=== PATIENT | male | born 1990 | race Caucasian/White ===

== ENCOUNTER → 2018-02-18 11:34 | Outpatient (CLI) | payer OTHER, MEDICAID, SELFPAY ==
--- NOTE | 2018-02-18 11:37 | DI.RAD.S_ITS ---
PROCEDURE: XR THORACIC SPINE 3V INDICATIONS: lower thoracic spinous process tenderness TECHNIQUE: 3 views of the thoracic spine were acquired. COMPARISON: [facility], , THORACIC SPINE 3 VIEWS, 03/17/2011, 11:03. FINDINGS: Bones: No fractures or dislocations. No suspicious bony lesions. There is minimal levocurvature Soft tissues: No paravertebral stripe thickening. IMPRESSION: Minimal levocurvature Dictated by: Bladimir Chavez M.D. on 02/18/2018 at 12:42 Approved by: Bladimir Chavez M.D. on 02/18/2018 at 12:47
== END ==
PROVIDERS: Family Provider Family Medicine; PCP Family Medicine; Visit Provider Family Medicine
DX: M54.6 Pain in thoracic spine (principal)
CPT/HCPCS: 72072

== ENCOUNTER → 2018-03-10 06:13 | Outpatient (CLI) | payer OTHER, MEDICAID, SELFPAY ==
--- NOTE | 2018-03-10 06:15 | DI.MRI.S_ITS ---
PROCEDURE: MR STROKE Pre- and post-contrast brain MRI, non-contrast brain MR angiogram, pre- and postcontrast neck MR angiogram INDICATIONS: eval for orgasmic headache TECHNIQUE: Brain: Noncontrast axial T1 spin echo, axial T2 fast spin echo, sagittal and axial FLAIR, coronal T2 fast spin echo, axial gradient echo, axial diffusion and ADC through the brain. After the administration of contrast, axial 3D VIBE of the cranial vasculature and brain. Brain MRA: Non-contrast 3-D time of flight MR angiogram, with multiple vnexlom-aegndjrdn-bhabkisjum (MIP) reformats performed. Neck MRA: Axial and sagittal TruFISP through the neck. Coronal dynamic MR angiogram during administration of contrast in the arterial and venous phases, with 3-dimenstional qldjcjf-ciwomnsyf-rdzkczxpih (MIP) reformats constructed from subtraction images. COMPARISON: None. FINDINGS: Image quality: Excellent. BRAIN: CSF spaces: Ventricles are normal in size and shape. Basal cisterns are patent. No extra-axial fluid collections. Brain: No intracranial bleeds or mass effects. Sierra-white matter interface is normal. Diffusion weighted images show no acute ischemic insults. There are low-lying cerebellar tonsils. Normal intravascular flow voids are present. No abnormal intracranial enhancement. Skull and face: Calvarial marrow signal is normal. Orbits appear normal. Sinuses: Small mucous retention cyst in the left maxillary sinus BRAIN MR ANGIOGRAM: Anterior circulation: Intracranial internal carotid arteries are normal in size and enhancement. The flow within the paired anterior cerebral arteries is normal and symmetric. The flow within the middle cerebral arteries is normal and symmetric. The anterior communicating artery is seen. No stenoses, occlusions, or aneurysms. Posterior circulation: The visualized portions of the vertebral arteries demonstrate normal caliber, and join to form a normal appearing basilar artery. The flow within the posterior cerebral arteries is normal and symmetric. No stenoses, occlusions, or aneurysms. NECK MR ANGIOGRAM: Carotids: Great vessels demonstrate a conventional anatomy as they arise from the aortic arch. The origins of the common carotid arteries appear patent. The calibers and courses of both common carotid arteries are normal. The bifurcation regions appear normal bilaterally. The internal carotid arteries demonstrate normal course and caliber. Posterior circulation: The origins of the vertebral arteries appear patent. More superior portions of both vertebral arteries demonstrate normal course and caliber, and join to form a normal appearing basilar artery. Miscellaneous: Subclavian arteries appear patent. Pre-contrast images through the neck show no soft tissue abnormalities. IMPRESSION: BRAIN MRI: Low-lying cerebellar tonsils. Please correlate clinically Subcentimeter left maxillary sinus mucous retention cyst or polyp. Otherwise, negative examination. No abnormal enhancement. BRAIN MR ANGIOGRAM: Negative examination. No evidence of aneurysm. NECK MR ANGIOGRAM: Normal exam. No focal stenosis or occlusion. Dictated by: Bladimri Chavez M.D. on 03/10/2018 at 8:47 Approved by: Bladimir Chavez M.D. on 03/10/2018 at 8:55
== END ==
PROVIDERS: Family Provider Family Medicine; PCP Family Medicine; Visit Provider Family Medicine
DX: G44.82 Headache associated with sexual activity (principal)
CPT/HCPCS: 70553; A9579

== ENCOUNTER 2018-04-03 18:57 | Emergency (ER) | payer OTHER, MEDICAID, SELFPAY ==
[2018-04-03 19:03] VITALS: BP 107/67; PULSE 90; RESP 14; TEMP 36.4; O2SAT 98
--- NOTE | 2018-04-03 19:03 | ED_ITS ---
HPI - Ear Problem <SHY Lomax - Last Filed: 04/03/18 22:25> General Chief complaint: Skin/Abscess/Foreign Body Stated complaint: PUPPY GOT RIGHT EAR Time Seen by Provider: 04/03/18 18:58 Source: patient Mode of arrival: ambulatory Limitations: no limitations History of Present Illness HPI Narrative: 28-year-old healthy male that is a nonsmoker here for complaint of laceration to his right external ear. He states that his younger puppy nipped at his ear and cause laceration and a hour prior to arrival. He states that the puppies immunizations are up-to-date. His last tetanus was approximately 1-2 months ago. He denies any other injuries. Slight amount of bleeding into the area that is controlled with direct pressure. No other concerns or complaints Related Data Home Medications Medication Instructions Recorded Confirmed acetaminophen #0 12/01/16 03/31/18 ibuprofen #0 12/01/16 03/31/18 Previous Rx's Medication Instructions Recorded triamcinolone acetonide 0.1 % 1 applictn TOP DAILY #30 gram 01/28/18 topical cream sumatriptan 25 mg tablet 25 mg PO Q2-4H PRN #20 tab 03/26/18 citalopram 20 mg tablet 20 mg PO DAILY #90 tab 03/31/18 amoxicillin-pot clavulanate 1 tab PO BID #10 tab 04/03/18 Allergies Allergy/AdvReac Type Severity Reaction Status Date / Time tramadol [TRAMADOL] Allergy Severe affects of Verified 04/03/18 19:03 tripping latex [LATEX] AdvReac Intermediate skin Verified 04/03/18 19:03 irritation Review of Systems <SHY Lomax - Last Filed: 04/03/18 22:25> Constitutional Denies chills, Denies fever(s), Denies lethargy and Denies weakness Eyes Denies change in vision, Denies eye discharge, Denies irritation and Denies loss of vision ENT Comments: Laceration right external ear Cardiovascular Denies chest pain, Denies irregular heart rhythm, Denies lightheadedness, Denies palpitations, Denies dyspnea, Denies dyspnea on exertion and Denies orthopnea Respiratory Denies cough, Denies dyspnea, Denies dyspnea on exertion and Denies wheezing Gastrointestinal Gastrointestinal: Denies abdominal pain, Denies change in bowel habits, Denies diarrhea, Denies nausea and Denies vomiting Genitourinary Denies hematuria, Denies flank pain, Denies urinary incontinence and Denies urinary urgency Musculoskeletal Denies back pain, Denies muscle weakness, Denies numbness and Denies tingling Integumentary/Breasts Denies pruritus, Denies erythema, Denies rash and Denies wounds Neurologic Denies loss of vision, Denies numbness, Denies tingling and Denies weakness Endocrine Denies palpitations Allergic/Immunologic Denies wheezing Exam <SHY Lomax - Last Filed: 04/03/18 22:25> Initial Vital Signs Initial Vital Signs: Vital Signs Temperature 97.6 F 04/03/18 19:03 Pulse Rate 90 04/03/18 19:03 Respiratory Rate 14 04/03/18 19:03 Blood Pressure 107/67 04/03/18 19:03 Pulse Oximetry 98 04/03/18 19:03 Const General: cooperative and well developed Nutritional Appearance: well nourished Orientation: alert, awake, oriented x3 and not confused HENWA Ears: other (1 cm laceration to the right antitragus. No signs of cartilage involvement. Cap refill less than 2 sec to the tragus good sensation.) Mouth: oral mucosae normal and moist mucous membranes Eyes Conjunctivae: conjunctivae normal Sclera: sclerae normal Pupils: PERRL EOM: EOM intact bilaterally Resp Effort & Inspection: normal respiratory effort, able to speak in complete sentences, no respiratory distress and no use of accessory muscles Auscultation: clear to auscultation bilaterally, no rales, no rhonchi and no wheezes Cardio Rate: regular rate Rhythm: regular rhythm Heart Sounds: no click, no gallops, no murmurs and no rubs Skin General: no rashes or lesions noted, No jaundice and No petechiae Neuro General: alert, oriented x3, gait normal and no focal motor deficits Speech: speech normal <Birgit Lala DO - Last Filed: 04/04/18 03:01> Initial Vital Signs Initial Vital Signs: Vital Signs Temperature 97.6 F 04/03/18 19:03 Pulse Rate 90 04/03/18 19:03 Respiratory Rate 14 04/03/18 19:03 Blood Pressure 107/67 04/03/18 19:03 Pulse Oximetry 98 04/03/18 19:03 Procedures <SHY Lomax - Last Filed: 04/03/18 22:25> Laceration Repair Laceration 1: Site: other (1 cm laceration to the right outer ear on the anti tragus) Side (If applicable): right Size (cm): 1 Description: linear Depth: simple, single layer Local Anesthetic: lidocaine 1% Amount of anesthesia used (mL): 1 Pre-repair: wound explored and irrigated extensively Skin layer closed with: nylon Size (cm): 5-0 Number of sutures: 2 Technique: simple, interrupted Course <SHY Lomax - Last Filed: 04/03/18 22:25> Orders Ordered: Discontinued Medications Amoxicillin/Clavulanate Potassium (Augmentin 875-125 Mg) 1 tab PO NOW ONE Stop: 04/03/18 20:14 Last Admin: 04/03/18 20:24 Dose: 1 tab Vital Signs - 8 hr 04/03/18 19:03 04/03/18 20:30 Temperature 97.6 F 97.2 F L Pulse Rate 90 71 Respiratory Rate 14 16 Blood Pressure 107/67 127/80 Pulse Oximetry 98 97 <Birgit Lala DO - Last Filed: 04/04/18 03:01> Orders Ordered: Discontinued Medications Amoxicillin/Clavulanate Potassium (Augmentin 875-125 Mg) 1 tab PO NOW ONE Stop: 04/03/18 20:14 Last Admin: 04/03/18 20:24 Dose: 1 tab Vital Signs - 8 hr 04/03/18 19:03 04/03/18 20:30 Temperature 97.6 F 97.2 F L Pulse Rate 90 71 Respiratory Rate 14 16 Blood Pressure 107/67 127/80 Pulse Oximetry 98 97 Medical Decision Making <SHY Lomax - Last Filed: 04/03/18 22:25> MDM Narrative Medical decision making narrative: Laceration to the right external ear was closed with 2 5-0 nylon simple interrupted sutures. Patient tolerated well. Wound dressed with bacitracin and a dressing. Due to wound closure and also being on the ear he is prescribed prophylactic antibiotics with Augmentin. Over -the-counter Tylenol or Motrin as needed for any discomfort. Dress wound daily with bacitracin and dressing. Follow up with ENT in 2 days to re-evaluate wound. If any worsening symptoms such as infection or bleeding return to the emergency room.. One baby aspirin 81 mg a day to prevent clots to the ear Discharge Plan Departure Patient Disposition: Home Clinical Impression: Laceration of ear, external, right Discharge Date/Time: 04/03/18 20:31 Interventions: ED Discharge Assessment Last Done: 04/03/18 20:30 Instructions: DI for Laceration Repair Activity Restrictions/Additional Instructions: Laceration to the right ear was closed with 2 sutures. Sutures to be removed in 7 days. To prevent infection to the ear You are placed on antibiotics take as directed. Use [id number] Tylenol or Motrin as needed for any discomfort. Also take a low-dose aspirin daily for 1 week to prevent clot formation. Follow up with ENT in the next couple days for re-evaluation. Use gcwh-beg-[id number] Tylenol or Motrin as needed for any discomfort. For any worsening symptoms return to the emergency room. Prescriptions: New amoxicillin-pot clavulanate 875-125 mg tablet 1 tab PO BID Qty: 10 RF: 0 No Action acetaminophen 325 MG tablet Qty: 0 RF: 0 ibuprofen 200 MG tablet Qty: 0 RF: 0 citalopram 20 mg tablet 20 mg PO DAILY Qty: 90 RF: 1 sumatriptan succinate 25 mg tablet 25 mg PO Q2-4H PRN (Reason: migraine headache) Qty: 20 RF: 0 triamcinolone acetonide 0.1 % cream 1 applictn TOP DAILY Qty: 30 RF: 0 Referrals: Errol Raza MD [Non-Staff] - Audrey Sandoval DO [Primary Care Provider] - <Birgit Lala DO - Last Filed: 04/04/18 03:01> Cosign ED Attending Hernan Attestation: I was immediately available in the department for consultation. Documentation has been reviewed. I agree with assessment and plan.
[2018-04-03] MEDS: AMOXICILLIN/CLAV 875/125 MG 1 TAB PO (20:24)
[2018-04-03 20:30] VITALS: BP 127/80; PULSE 71; RESP 16; TEMP 36.2; O2SAT 97
== END 2018-04-03 20:31 | disposition home or self-care (01) ==
PROVIDERS: Emergency Provider Nurse Practitioner Family; Family Provider Family Medicine; PCP Family Medicine
DX: S01.311A Laceration without foreign body of right ear, initial encounter (principal); W54.0XXA Bitten by dog, initial encounter
CPT/HCPCS: 12011; 99283

== ENCOUNTER 2018-07-31 12:22 | Emergency (ER) | payer OTHER, MEDICAID, SELFPAY ==
[2018-07-31 12:29] VITALS: BP 145/80; PULSE 72; RESP 13; TEMP 37.4; O2SAT 99
--- NOTE | 2018-07-31 12:34 | ED.MALEGU ---
HPI - Male Genitourinary <SHY Lomax - Last Filed: 07/31/18 21:53> General Chief complaint: Urogenital-Male Stated complaint: painful erection x4 hours Time Seen by Provider: 07/31/18 12:33 Source: patient Mode of arrival: ambulatory Limitations: no limitations History of Present Illness HPI Narrative: 28-year-old male with history of depression and anxiety that is a nonsmoker here for complaint of having a erection for the past 5-6 hours. He states that he he has not been able to get it to reduce by using cold shower and eyes put he reports that his started become painful over the past few hours. He denies any trauma to the area. Denies any sexual activity. No urinary symptoms. No testicular pain. No fevers. He denies any penile discharge. He states that he has had a couple other episodes of this in the past but it has always resolved after a few hours. He has not been seen for this in the past. He denies any other concerns or complaints at this timeframe. Related Data Home Medications Medication Instructions Recorded Confirmed acetaminophen #0 12/01/16 06/28/18 ibuprofen #0 12/01/16 06/28/18 Previous Rx's Medication Instructions Recorded triamcinolone acetonide 0.1 % 1 applictn TOP DAILY #30 gram 01/28/18 topical cream sumatriptan 25 mg tablet 25 mg PO Q2-4H PRN #20 tab 03/26/18 citalopram 40 mg tablet 40 mg PO DAILY #90 tab 06/07/18 hydroxyzine pamoate 25 mg capsule See Rx Instructions PO QID PRN 06/17/18 #150 cap lamotrigine 100 mg tablet 50 mg PO DAILY #15 tab 06/28/18 Allergies Allergy/AdvReac Type Severity Reaction Status Date / Time tramadol [TRAMADOL] Allergy Severe affects of Verified 06/28/18 08:58 tripping latex [LATEX] AdvReac Intermediate skin Verified 06/28/18 08:58 irritation Review of Systems <SHY Lomax - Last Filed: 07/31/18 21:53> Constitutional Denies chills, Denies fever(s), Denies lethargy and Denies weakness Eyes Denies change in vision, Denies eye discharge, Denies irritation and Denies loss of vision ENT Ears, Nose, Mouth, and Throat: Denies change in voice, Denies neck pain and Denies sore throat Cardiovascular Denies chest pain, Denies irregular heart rhythm, Denies lightheadedness, Denies palpitations, Denies dyspnea, Denies dyspnea on exertion and Denies orthopnea Respiratory Denies cough, Denies dyspnea, Denies dyspnea on exertion and Denies wheezing Genitourinary Comments: Painful erection Musculoskeletal Denies neck pain Integumentary/Breasts Denies pruritus, Denies erythema, Denies rash and Denies wounds Neurologic Denies confusion, Denies loss of vision and Denies weakness Psychiatric Denies anxiety, Denies confusion, Denies depression, Denies homicidal ideation and Denies suicidal ideation Endocrine Denies palpitations Hematologic/Lymphatic Denies easy bruising Allergic/Immunologic Denies wheezing PFSH <SHY Lomax - Last Filed: 07/31/18 21:53> Social History Smoking Status: Current some day smoker Exam <SHY Lomax - Last Filed: 07/31/18 21:53> Initial Vital Signs Initial Vital Signs: Vital Signs Temperature 99.3 F 07/31/18 12:29 Pulse Rate 72 07/31/18 12:29 Respiratory Rate 13 07/31/18 12:29 Blood Pressure 145/80 H 07/31/18 12:29 Pulse Oximetry 99 07/31/18 12:29 Const General: cooperative and well developed Nutritional Appearance: well nourished Orientation: alert, awake, oriented x3 and not confused [facility] Mouth: oral mucosae normal and moist mucous membranes Eyes Conjunctivae: conjunctivae normal Sclera: sclerae normal Pupils: PERRL EOM: EOM intact bilaterally Resp Effort & Inspection: normal respiratory effort, able to speak in complete sentences, no respiratory distress and no use of accessory muscles Auscultation: clear to auscultation bilaterally, no rales, no rhonchi and no wheezes Cardio Rate: regular rate Rhythm: regular rhythm Heart Sounds: no click, no gallops, no murmurs and no rubs Pulses: normal peripheral pulses External: circumcised, no ecchymosis, no erythema and tenderness Penis: other (penis erect ) Meatus: meatus normal Scrotum: scrotum normal Testes: normal Skin General: no rashes or lesions noted, No jaundice and No petechiae Neuro General: alert, oriented x3, gait normal and no focal motor deficits Speech: speech normal <Lakia Kothari DO - Last Filed: 08/04/18 07:20> Initial Vital Signs Initial Vital Signs: Vital Signs Temperature 99.3 F 07/31/18 12:29 Pulse Rate 72 07/31/18 12:29 Respiratory Rate 13 07/31/18 12:29 Blood Pressure 145/80 H 07/31/18 12:29 Pulse Oximetry 99 07/31/18 12:29 Course <SHY Lomax - Last Filed: 07/31/18 21:53> Orders Ordered: Discontinued Medications Ketorolac Tromethamine (Toradol) 30 mg IV NOW ONE Stop: 07/31/18 12:48 Last Admin: 07/31/18 14:48 Dose: Not Given Pseudoephedrine HCl (Pseudoephedrine Hcl) 60 mg PO NOW ONE Stop: 07/31/18 13:11 Last Admin: 07/31/18 13:50 Dose: 60 mg Vital Signs - 8 hr 07/31/18 14:48 Pulse Rate 61 Respiratory Rate 14 Blood Pressure 133/78 Pulse Oximetry 100 <Lakia Kothari DO - Last Filed: 08/04/18 07:20> Orders Ordered: Discontinued Medications Ketorolac Tromethamine (Toradol) 30 mg IV NOW ONE Stop: 07/31/18 12:48 Last Admin: 07/31/18 14:48 Dose: Not Given Pseudoephedrine HCl (Pseudoephedrine Hcl) 60 mg PO NOW ONE Stop: 07/31/18 13:11 Last Admin: 07/31/18 13:50 Dose: 60 mg Vital Signs - 8 hr 07/31/18 14:48 Pulse Rate 61 Respiratory Rate 14 Blood Pressure 133/78 Pulse Oximetry 100 MDM - Male Genitourinary <SHY Lomax - Last Filed: 07/31/18 21:53> MDM Narrative Medical decision making narrative: Discussed case with Dr. Stevenson urology at who recommended patient be transferred down to [facility] for immediate urological treatment to a prolonged erection and possible sequelae to loss of blood flow. He recommended that I give him Sudafed now and then transfer patient to [facility] . While setting up transport to [facility] patient reported that his erection has subsided. He still has some tenderness to the penile area. Contacted Dr. Stevenson again who states that he will have some tenderness for a period time after this he recommends that he obtain a urology consult. Patient may either go to [facility] or urology consult through primary care. Diuq-qux-[id number] Sudafed for further symptoms. And return emergency room. For any worsening symptoms return emergency room. Discharge Plan Departure Patient Disposition: Home Clinical Impression: Priapism Discharge Date/Time: 07/31/18 14:50 Interventions: ED Discharge Assessment Last Done: 07/31/18 14:48 Instructions: DI for Priapism Activity Restrictions/Additional Instructions: Symptoms have resolved as of now. You may have some tenderness to the area for the next day or 2. Use [id number] Tylenol or Motrin as needed for any discomfort. Follow up with primary care provider for referral to Urology or may go to [facility] and see Urology there. Use oxcl-zzr-kmzfdku Sudafed for return of symptoms. If return of symptoms or worsening symptoms return to the emergency room. Prescriptions: No Action acetaminophen 325 MG tablet Qty: 0 RF: 0 ibuprofen 200 MG tablet Qty: 0 RF: 0 hydroxyzine pamoate 25 mg capsule See Rx Instructions PO QID PRN (Reason: anxiety) Qty: 150 RF: 3 sumatriptan succinate 25 mg tablet 25 mg PO Q2-4H PRN (Reason: migraine headache) Qty: 20 RF: 0 lamotrigine 100 mg tablet 50 mg PO DAILY Qty: 15 RF: 1 triamcinolone acetonide 0.1 % cream 1 applictn TOP DAILY Qty: 30 RF: 0 citalopram 40 mg tablet 40 mg PO DAILY Qty: 90 RF: 1 Referrals: [facility] [Provider Group] Audrey Sandoval DO [Primary Care Provider] - <Lakia Kothari DO - Last Filed: 08/04/18 07:20> Cosign ED Attending Hernan Attestation: I was immediately available in the department for consultation. This documentation has been reviewed, case was discussed and I agree with assessment and plan. Supervised by Lakia Kothari DO
--- NOTE | 2018-07-31 12:39 | ED_ITS ---
HPI - Male Genitourinary <SHY Lomax - Last Filed: 07/31/18 21:53> General Chief complaint: Urogenital-Male Stated complaint: painful erection x4 hours Time Seen by Provider: 07/31/18 12:33 Source: patient Mode of arrival: ambulatory Limitations: no limitations History of Present Illness HPI Narrative: 28-year-old male with history of depression and anxiety that is a nonsmoker here for complaint of having a erection for the past 5-6 hours. He states that he he has not been able to get it to reduce by using cold shower and eyes put he reports that his started become painful over the past few hours. He denies any trauma to the area. Denies any sexual activity. No urinary symptoms. No testicular pain. No fevers. He denies any penile discharge. He states that he has had a couple other episodes of this in the past but it has always resolved after a few hours. He has not been seen for this in the past. He denies any other concerns or complaints at this timeframe. Related Data Home Medications Medication Instructions Recorded Confirmed acetaminophen #0 12/01/16 06/28/18 ibuprofen #0 12/01/16 06/28/18 Previous Rx's Medication Instructions Recorded triamcinolone acetonide 0.1 % 1 applictn TOP DAILY #30 gram 01/28/18 topical cream sumatriptan 25 mg tablet 25 mg PO Q2-4H PRN #20 tab 03/26/18 citalopram 40 mg tablet 40 mg PO DAILY #90 tab 06/07/18 hydroxyzine pamoate 25 mg capsule See Rx Instructions PO QID PRN 06/17/18 #150 cap lamotrigine 100 mg tablet 50 mg PO DAILY #15 tab 06/28/18 Allergies Allergy/AdvReac Type Severity Reaction Status Date / Time tramadol [TRAMADOL] Allergy Severe affects of Verified 06/28/18 08:58 tripping latex [LATEX] AdvReac Intermediate skin Verified 06/28/18 08:58 irritation Review of Systems <SHY Lomax - Last Filed: 07/31/18 21:53> Constitutional Denies chills, Denies fever(s), Denies lethargy and Denies weakness Eyes Denies change in vision, Denies eye discharge, Denies irritation and Denies loss of vision ENT Ears, Nose, Mouth, and Throat: Denies change in voice, Denies neck pain and Denies sore throat Cardiovascular Denies chest pain, Denies irregular heart rhythm, Denies lightheadedness, Denies palpitations, Denies dyspnea, Denies dyspnea on exertion and Denies orthopnea Respiratory Denies cough, Denies dyspnea, Denies dyspnea on exertion and Denies wheezing Genitourinary Comments: Painful erection Musculoskeletal Denies neck pain Integumentary/Breasts Denies pruritus, Denies erythema, Denies rash and Denies wounds Neurologic Denies confusion, Denies loss of vision and Denies weakness Psychiatric Denies anxiety, Denies confusion, Denies depression, Denies homicidal ideation and Denies suicidal ideation Endocrine Denies palpitations Hematologic/Lymphatic Denies easy bruising Allergic/Immunologic Denies wheezing PFSH <SHY Lomax - Last Filed: 07/31/18 21:53> Social History Smoking Status: Current some day smoker Exam <SHY Lomax - Last Filed: 07/31/18 21:53> Initial Vital Signs Initial Vital Signs: Vital Signs Temperature 99.3 F 07/31/18 12:29 Pulse Rate 72 07/31/18 12:29 Respiratory Rate 13 07/31/18 12:29 Blood Pressure 145/80 H 07/31/18 12:29 Pulse Oximetry 99 07/31/18 12:29 Const General: cooperative and well developed Nutritional Appearance: well nourished Orientation: alert, awake, oriented x3 and not confused [facility] Mouth: oral mucosae normal and moist mucous membranes Eyes Conjunctivae: conjunctivae normal Sclera: sclerae normal Pupils: PERRL EOM: EOM intact bilaterally Resp Effort & Inspection: normal respiratory effort, able to speak in complete sentences, no respiratory distress and no use of accessory muscles Auscultation: clear to auscultation bilaterally, no rales, no rhonchi and no wheezes Cardio Rate: regular rate Rhythm: regular rhythm Heart Sounds: no click, no gallops, no murmurs and no rubs Pulses: normal peripheral pulses External: circumcised, no ecchymosis, no erythema and tenderness Penis: other (penis erect ) Meatus: meatus normal Scrotum: scrotum normal Testes: normal Skin General: no rashes or lesions noted, No jaundice and No petechiae Neuro General: alert, oriented x3, gait normal and no focal motor deficits Speech: speech normal <Lakia Kothari DO - Last Filed: 08/04/18 07:20> Initial Vital Signs Initial Vital Signs: Vital Signs Temperature 99.3 F 07/31/18 12:29 Pulse Rate 72 07/31/18 12:29 Respiratory Rate 13 07/31/18 12:29 Blood Pressure 145/80 H 07/31/18 12:29 Pulse Oximetry 99 07/31/18 12:29 Course <SHY Lomax - Last Filed: 07/31/18 21:53> Orders Ordered: Discontinued Medications Ketorolac Tromethamine (Toradol) 30 mg IV NOW ONE Stop: 07/31/18 12:48 Last Admin: 07/31/18 14:48 Dose: Not Given Pseudoephedrine HCl (Pseudoephedrine Hcl) 60 mg PO NOW ONE Stop: 07/31/18 13:11 Last Admin: 07/31/18 13:50 Dose: 60 mg Vital Signs - 8 hr 07/31/18 14:48 Pulse Rate 61 Respiratory Rate 14 Blood Pressure 133/78 Pulse Oximetry 100 <Lakia Kothari DO - Last Filed: 08/04/18 07:20> Orders Ordered: Discontinued Medications Ketorolac Tromethamine (Toradol) 30 mg IV NOW ONE Stop: 07/31/18 12:48 Last Admin: 07/31/18 14:48 Dose: Not Given Pseudoephedrine HCl (Pseudoephedrine Hcl) 60 mg PO NOW ONE Stop: 07/31/18 13:11 Last Admin: 07/31/18 13:50 Dose: 60 mg Vital Signs - 8 hr 07/31/18 14:48 Pulse Rate 61 Respiratory Rate 14 Blood Pressure 133/78 Pulse Oximetry 100 MDM - Male Genitourinary <SHY Lomax - Last Filed: 07/31/18 21:53> MDM Narrative Medical decision making narrative: Discussed case with Dr. Stevenson urology at who recommended patient be transferred down to [facility] for immediate urological treatment to a prolonged erection and possible sequelae to loss of blood flow. He recommended that I give him Sudafed now and then transfer patient to [facility] . While setting up transport to [facility] patient reported that his erection has subsided. He still has some tenderness to the penile area. Contacted Dr. Stevenson again who states that he will have some tenderness for a period time after this he recommends that he obtain a urology consult. Patient may either go to [facility] or urology consult through primary care. [id number] Sudafed for further symptoms. And return emergency room. For any worsening symptoms return emergency room. Discharge Plan Departure Patient Disposition: Home Clinical Impression: Priapism Discharge Date/Time: 07/31/18 14:50 Interventions: ED Discharge Assessment Last Done: 07/31/18 14:48 Instructions: DI for Priapism Activity Restrictions/Additional Instructions: Symptoms have resolved as of now. You may have some tenderness to the area for the next day or 2. Use [id number] Tylenol or Motrin as needed for any discomfort. Follow up with primary care provider for referral to Urology or may go to [facility] and see Urology there. Use [id number] Sudafed for return of symptoms. If return of symptoms or worsening symptoms return to the emergency room. Prescriptions: No Action acetaminophen 325 MG tablet Qty: 0 RF: 0 ibuprofen 200 MG tablet Qty: 0 RF: 0 hydroxyzine pamoate 25 mg capsule See Rx Instructions PO QID PRN (Reason: anxiety) Qty: 150 RF: 3 sumatriptan succinate 25 mg tablet 25 mg PO Q2-4H PRN (Reason: migraine headache) Qty: 20 RF: 0 lamotrigine 100 mg tablet 50 mg PO DAILY Qty: 15 RF: 1 triamcinolone acetonide 0.1 % cream 1 applictn TOP DAILY Qty: 30 RF: 0 citalopram 40 mg tablet 40 mg PO DAILY Qty: 90 RF: 1 Referrals: [facility] [Provider Group] Audrey Sandoval DO [Primary Care Provider] - <Lakia Kothari DO - Last Filed: 08/04/18 07:20> Cosign ED Attending Hernan Attestation: I was immediately available in the department for consultation. This documentation has been reviewed, case was discussed and I agree with assessment and plan. Supervised by Lakia Kothari DO
[2018-07-31] MEDS: PSEUDOEPHEDRINE 30 MG TABLET 60 MG PO (13:50)
--- NOTE | 2018-07-31 14:23 | PC.NURSE ---
Pt with Erection since about 0700 this morning. Woke up with symptoms. states started to decrease after provider in room.
[2018-07-31 14:48] VITALS: BP 133/78; PULSE 61; RESP 14; O2SAT 100
== END 2018-07-31 14:50 | disposition home or self-care (01) ==
PROVIDERS: Emergency Provider Nurse Practitioner Family; Family Provider Family Medicine; PCP Family Medicine
DX: N48.30 Priapism, unspecified (principal)
CPT/HCPCS: 99282; 99283

== ENCOUNTER 2020-06-25 14:46 | Emergency (ER) | payer SELFPAY ==
[2020-06-25 15:26] VITALS: BP 158/92; PULSE 79; RESP 16; TEMP 36.8; O2SAT 97
--- NOTE | 2020-06-25 16:47 | ED_ITS ---
HPI - Skin/Abscess/Foreign Bdy General Chief complaint: Skin/Abscess/Foreign Body Stated complaint: LEFT HAND INDEX FINGER SWELLING PAIN Time Seen by Provider: 06/25/20 16:34 Source: patient Mode of arrival: Ambulatory Limitations: no limitations History of Present Illness HPI narrative: 30-year-old male here for evaluation of 2 weeks of redness and swelling at the base of his nail on his left index finger. He states the redness has improved somewhat. He has not had no specific trauma. 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 Has not tried anything for symptoms prior to arrival. Related Data Home Medications Medication Instructions Recorded Confirmed acetaminophen #0 12/01/16 06/28/18 ibuprofen #0 12/01/16 06/28/18 Previous Rx's Medication Instructions Recorded triamcinolone acetonide 0.1 % 1 applictn TOP DAILY #30 gram 01/28/18 topical cream sumatriptan succinate 25 mg tablet 25 mg PO Q2-4H PRN #20 tab 03/26/18 lamotrigine 100 mg tablet 50 mg PO DAILY #15 tab 06/28/18 citalopram 40 mg tablet 40 mg PO DAILY #90 tab 09/15/18 hydroxyzine pamoate 25 mg capsule See Rx Instructions PO QID PRN 09/27/18 #150 cap Allergies Allergy/AdvReac Type Severity Reaction Status Date / Time tramadol [TRAMADOL] Allergy Severe affects of Verified 06/25/20 15:37 tripping latex [LATEX] AdvReac Intermediate skin Verified 06/25/20 15:37 irritation Review of Systems Constitutional Constitutional: Denies fever(s) Cardiovascular Cardiovascular: Denies chest pain and Denies dyspnea Respiratory Respiratory: Denies dyspnea Gastrointestinal Gastrointestinal: Denies abdominal pain Integumentary/Breasts Comments: Redness around the base of the nail left index finger Neurologic Neurologic: Denies behavioral changes and Denies confusion Psychiatric Psychiatric: Denies behavioral changes and Denies confusion Patient History Medical History Back pain (12/02/12) Left ankle sprain Perirectal abscess Tendinopathy of patella Social History Smoking Status: Current some day smoker Smoking Status: Current some day smoker alcohol intake frequency: 0-2 drinks per day Substance Use Type: does not use Exam Initial Vital Signs Initial Vital Signs: Vital Signs Temperature 98.3 F 06/25/20 15:26 Pulse Rate 79 06/25/20 15:26 Respiratory Rate 16 06/25/20 15:26 Blood Pressure 158/92 H 06/25/20 15:26 Pulse Oximetry 97 06/25/20 15:26 Const General: cooperative and comfortable HENMT Head: normal to inspection and normocephalic Resp Effort & Inspection: normal respiratory effort Skin Other: Patient with redness and swelling along the dorsum of the left index finger along the nail bed. The MCP DI p.m. PIP joint unremarkable. Extrem General: capillary refill normal Psych Appearance: grossly normal and well kempt Course Orders Ordered: Discontinued Medications Diphtheria/Tetanus/Acell Pertussis (Tet,Diph,Pertuss(Acell),Vac/Pf 0.5 Ml Syringe) 0.5 ml IM .ONCE ONE Stop: 06/25/20 16:03 Last Admin: 06/25/20 17:10 Dose: 0.5 ml Documented by: RK Vital Signs Vital signs: Vital Signs - 8 hr 06/25/20 15:26 06/25/20 17:18 Temperature 98.3 F Pulse Rate 79 82 Respiratory Rate 16 15 Blood Pressure 158/92 H 132/70 Pulse Oximetry 97 96 MDM - Skin/Abscess/Foreign Bdy MDM Narrative Medical decision making narrative: With a knife I was able to elevate the skin in between to the nail bed and the cuticle and was able to express a small amount of purulent material. This did improve symptoms somewhat. I feel we can hold on antibiotics for now and informed him that he should wash his hands like normal is given return precautions and follow-up instructions. He expressed understanding and agreement. Discharge Plan Departure Patient Disposition: Home Clinical Impression: Paronychia Instructions: DI for Paronychia Activity Restrictions/Additional Instructions: You can wash your hands like normal. Also recommend that you soak your hand in warm water for the next couple days. This should improve your symptoms. If things seem to not be improving or the redness is moving up your finger please return to the emergency department for further evaluation Prescriptions: No Action acetaminophen 325 MG tablet Qty: 0 RF: 0 ibuprofen 200 MG tablet Qty: 0 RF: 0 citalopram 40 mg tablet 40 mg PO DAILY Qty: 90 RF: 1 hydroxyzine pamoate 25 mg capsule See Rx Instructions PO QID PRN (Reason: anxiety) Qty: 150 RF: 3 sumatriptan succinate 25 mg tablet 25 mg PO Q2-4H PRN (Reason: migraine headache) Qty: 20 RF: 0 lamotrigine 100 mg tablet 50 mg PO DAILY Qty: 15 RF: 1 triamcinolone acetonide 0.1 % cream 1 applictn TOP DAILY Qty: 30 RF: 0 Referrals: Audrey Sandoval DO [Primary Care Provider] -
[2020-06-25] MEDS: TET,DIPH,PERTUSS(ACELL),VAC/PF 0.5 ML SYRINGE IM (17:10)
--- NOTE | 2020-06-25 17:17 | PC.NURSE ---
redness around cuticle with swelling. denies trauma
[2020-06-25 17:18] VITALS: BP 132/70; PULSE 82; RESP 15; O2SAT 96
== END 2020-06-25 17:19 | disposition home or self-care (01) ==
PROVIDERS: Emergency Provider Emergency Medicine; Family Provider Family Medicine; PCP Family Medicine
DX: L03.012 Cellulitis of left finger (principal); Z23 Encounter for immunization
CPT/HCPCS: 90471; 99281; 99283; 90715

== ENCOUNTER 2022-08-19 06:21 | Emergency (ER) | payer OTHER, MEDICAID, SELFPAY ==
[2022-08-19 06:30] VITALS: BP 136/90; PULSE 120; RESP 20; TEMP 36.8; O2SAT 98; BMI 29.1
--- NOTE | 2022-08-19 06:39 | ED_ITS ---
HPI - General Adult <Vamshi Bella DO - Last Filed: 08/19/22 18:20> General Chief complaint: Anxiety Stated complaint: anxiety Time Seen by Provider: 08/19/22 06:34 Source: patient Mode of arrival: Ambulatory Limitations: no limitations History of Present Illness HPI narrative: Patient is a 32-year-old male. Has a history of anxiety. Is also a prior opioid addict who is here for evaluation of approximately 3 days of a panic attack. He states that it started when his girlfriend went on vacation. He tried some hydroxyzine and cyclobenzaprine and trazodone last evening. He states these medications have worked for him in the past however they do not seem to be helping any of his symptoms. He states he is desperate because of the panic attack. Related Data Home Medications Medication Instructions Recorded Confirmed acetaminophen 325 mg tablet ##0 12/01/16 04/10/21 ibuprofen 200 mg tablet ##0 12/01/16 04/10/21 Previous Rx's Medication Instructions Recorded clonazepam 0.5 mg tablet 0.5 mg PO TID #90 tabs 05/22/21 mirtazapine 15 mg tablet 45 mg PO ONCE #90 tabs 06/12/21 alprazolam 1 mg tablet 0.5 mg PO TID PRN anxiety #5 tabs 08/19/22 sertraline 25 mg tablet (Zoloft) 25 mg PO DAILY #14 tabs 08/19/22 Allergies Allergy/AdvReac Type Severity Reaction Status Date / Time tramadol [TRAMADOL] Allergy Severe affects of Verified 08/19/22 06:41 tripping latex [LATEX] AdvReac Intermediate skin Verified 08/19/22 06:41 irritation Review of Systems <Vamshi Bella DO - Last Filed: 08/19/22 18:20> Constitutional Constitutional: Reports system reviewed and no additional complaints, except as documented Psychiatric Psychiatric: Reports system reviewed and no additional complaints, except as documented Patient History <Vamshi Bella DO - Last Filed: 08/19/22 18:20> Medical History Back pain (12/02/12) Left ankle sprain Perirectal abscess Tendinopathy of patella Family History (Updated 05/22/21 @ 10:32 by Audrey Sandoval DO) Father Age: 56 Prostate cancer Colon cancer Social History Smoking Status: Current some day smoker Smoking Status: Current some day smoker alcohol intake frequency: 0-2 drinks per day Substance Use Type: does not use Exam <Vamshi Bella DO - Last Filed: 08/19/22 18:20> Initial Vital Signs Initial Vital Signs: Vital Signs Temperature 98.2 F 08/19/22 06:30 Pulse Rate 120 H 08/19/22 06:30 Respiratory Rate 20 08/19/22 06:30 Blood Pressure 136/90 08/19/22 06:30 Pulse Oximetry 98 08/19/22 06:30 Oxygen Delivery Method Room Air 08/19/22 06:30 Const General: comfortable and No ill appearing HENMT Head: normal to inspection Resp Effort & Inspection: normal respiratory effort Cardio Rate: regular rate Psych Other: Anxious affect. Cooperative. Not combative. <Lakia Kothari DO - Last Filed: 08/19/22 08:35> Initial Vital Signs Initial Vital Signs: Vital Signs Temperature 98.2 F 08/19/22 06:30 Pulse Rate 120 H 08/19/22 06:30 Respiratory Rate 20 08/19/22 06:30 Blood Pressure 136/90 08/19/22 06:30 Pulse Oximetry 98 08/19/22 06:30 Oxygen Delivery Method Room Air 08/19/22 06:30 Course <Vamshi Bella DO - Last Filed: 08/19/22 18:20> Orders Ordered: Discontinued Medications Lorazepam (Lorazepam 0.5 Mg Tablet) 1 mg PO NOW ONE Stop: 08/19/22 06:40 Last Admin: 08/19/22 06:45 Dose: 1 mg Documented By: KAYLIN Vital Signs Vital signs: Vital Signs - 8 hr 08/19/22 06:30 08/19/22 08:07 Temperature 98.2 F Pulse Rate 120 H 98 H Respiratory Rate 20 18 Blood Pressure 136/90 140/87 Pulse Oximetry 98 99 Oxygen Delivery Method Room Air Room Air <Lakia Kothari DO - Last Filed: 08/19/22 08:35> Orders Ordered: Discontinued Medications Lorazepam (Lorazepam 0.5 Mg Tablet) 1 mg PO NOW ONE Stop: 08/19/22 06:40 Last Admin: 08/19/22 06:45 Dose: 1 mg Documented By: KAYLIN Vital Signs Vital signs: Vital Signs - 8 hr 08/19/22 06:30 08/19/22 08:07 Temperature 98.2 F Pulse Rate 120 H 98 H Respiratory Rate 20 18 Blood Pressure 136/90 140/87 Pulse Oximetry 98 99 Oxygen Delivery Method Room Air Room Air Medical Decision Making <Vamshi Bella, DO - Last Filed: 08/19/22 18:20> [facility] Narrative Medical decision making narrative: Patient having anxiety/panic attack. Was given oral Ativan. Care turned over to Dr. Kothari to follow-up response of Ativan and disposition. <Lakia Kothari, DO - Last Filed: 08/19/22 08:35> [facility] Narrative Medical decision making narrative: Patient having anxiety/panic attack. Was given oral Ativan. Care turned over to Dr. Kothari to follow-up response of Ativan and disposition. 08/19/22 Taye: Patient seen independently evaluated by himself. He notes he is had some anxiety and issues with panic attacks in the past. States last time it was particularly troublesome while he was withdrawing from narcotics. He states he had been doing well he had been on a long-term daily medication but does not recall the name specifically. He was given a dose of oral Ativan here in the department and did find it helpful. Patient states he would be interested in starting a daily medication, he was supposed to be seen at 8:00 a.m. and Andreas Lewis to primary care office appointment but presented here as he was feeling bar to anxious. Patient states he has been taking trazodone, hydroxyzine, he states he is had Klonopin in the past. Patient states he is interested in counseling, he states he does have some resources he is open [employer] reaching out him. He feels comfortable discharging home at this time he is not suicidal or homicidal. Patient on examination does not having any changes suspicious for other source of his symptoms at this time. Discharge Plan Departure Patient Disposition: Home Clinical Impression: Anxiety Instructions: Anxiety and Panic Attacks (Alternative Therapy) Activity Restrictions/Additional Instructions: Please follow-up with your physician for long-term medication options. I think you would benefit from a daily antianxiety medication. There is prescription for a daily medication to take whether you feel good or bad, this medication can be titrated up by your physician or changed if not effective. There is a very short term prescription for breakthrough symptoms can take half to 1 tablet every 6 hours as needed. This medication can make you very sleepy do not drive, perform hazardous activities or make any major decisions while taking it. This medication does have addictive properties so please use with care. Prescriptions sent to [facility] in [place] If you're feeling suicidal or having suicidal thoughts, contact the suicide hotline (this is also the self referral for counseling): . Please return if you are feeling safe if you are having thoughts of harming yourself or others, or other new or concerning changes. Prescriptions: New sertraline [Zoloft] 25 mg tablet 25 mg PO DAILY Qty: 14 0RF alprazolam 1 mg tablet 0.5 mg PO TID PRN (Reason: anxiety) Qty: 5 0RF No Action acetaminophen 325 MG tablet Qty: 0 ibuprofen 200 MG tablet Qty: 0 clonazepam 0.5 mg tablet 0.5 mg PO TID Qty: 90 1RF mirtazapine 15 mg tablet 45 mg PO ONCE Qty: 90 1RF Referrals: Audrey Sandoval DO [Primary Care Provider] - Stand Alone Forms: Patient Portal/API
[2022-08-19] MEDS: LORazepam 0.5 MG TABLET 1 MG PO (06:45)
[2022-08-19 08:07] VITALS: BP 140/87; PULSE 98; RESP 18; O2SAT 99
== END 2022-08-19 08:07 | disposition home or self-care (01) ==
PROVIDERS: Emergency Provider Emergency Medicine; Family Provider Family Medicine; PCP Family Medicine
DX: F41.9 Anxiety disorder, unspecified (principal)
CPT/HCPCS: 99283

== ENCOUNTER 2022-08-25 18:39 | Emergency (ER) | payer OTHER, MEDICAID, SELFPAY ==
[2022-08-25 19:00] VITALS: BP 122/78; PULSE 85; RESP 20; TEMP 36.5; O2SAT 97; BMI 29.1
--- NOTE | 2022-08-25 19:21 | ED.ANXIETY ---
HPI - Anxiety General Chief Complaint: Anxiety Stated Complaint: extreme anxiety Time Seen by Provider: 08/25/22 19:21 Source: patient Mode of arrival: Ambulatory History of Present Illness HPI narrative: 32-year-old male nonsmoker with history of anxiety presents with a chief complaint of feeling significantly anxious on the verge of having a panic attack. He denies any suicidal or homicidal ideations. He is able to eat and drink and take care of himself and has an appointment with his primary care provider in the morning. 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 He is not dizzy nor weak or lightheaded. He denies any chest pain or shortness of breath. He has no nausea, vomiting or diarrhea. He had previously taken alprazolam and states it helped him significantly and is hoping only to get a small prescription to get him through the night until he sees his primary care provider tomorrow. He specifically states that he is not interested in meeting with social Work, does not have any interest in pursuing hospitalization at this time and would prefer to wait till his support comes home tomorrow and he sees his doctor to come up with a more long-term plan Related Data Home Medications Medication Instructions Recorded Confirmed acetaminophen 325 mg tablet ##0 12/01/16 04/10/21 ibuprofen 200 mg tablet ##0 12/01/16 04/10/21 Previous Rx's Medication Instructions Recorded clonazepam 0.5 mg tablet 0.5 mg PO TID #90 tabs 05/22/21 mirtazapine 15 mg tablet 45 mg PO ONCE #90 tabs 06/12/21 alprazolam 1 mg tablet 0.5 mg PO TID PRN anxiety #5 tabs 08/19/22 sertraline 25 mg tablet (Zoloft) 25 mg PO DAILY #14 tabs 08/19/22 alprazolam 0.5 mg tablet 0.5 mg PO TID PRN anxiety #5 tabs 08/25/22 Allergies Allergy/AdvReac Type Severity Reaction Status Date / Time tramadol [TRAMADOL] Allergy Severe affects of Verified 08/19/22 06:41 tripping latex [LATEX] AdvReac Intermediate skin Verified 08/19/22 06:41 irritation Review of Systems Review of Systems Narrative: GENERAL: Denies chills, fatigue, malaise, fever, sweats. HEENT: Denies sinus pain, ear pain, sore throat, difficulty swallowing, dizziness. RESPIRATORY: Denies dyspnea, cough, wheezing, hemoptysis, sputum. CARDIOVASCULAR: Denies chest pain, palpitations, orthopnea, edema, GASTROINTESTINAL: Denies nausea, vomiting, abdominal pain, diarrhea, constipation, melena. : Denies dysuria, frequency, incontinence, hematuria, urinary retention. MUSCULOSKELETAL: denies weakness, joint pain, or bony pain SKIN: Denies rash, skin lesions, or other NEUROLOGIC: Denies weakness, headache, numbness, change in speech, confusion, seizures, incoordination. PSYCHIATRIC: See HPI 12 point review of systems is negative except for those stated above Patient History Medical History Back pain (12/02/12) Left ankle sprain Perirectal abscess Tendinopathy of patella Family History Father Age: 56 Prostate cancer Colon cancer Social History Smoking Status: Never smoker Smoking Status: Never smoker alcohol intake frequency: 0-2 drinks per day Substance Use Type: marijuana Exam Narrative Exam Narrative: GENERAL: [32] year old patient appears stated age. Well-developed patient, in mild distress. Anxious, good insight, appropriate eye contact, GCS 15. Speaking clearly without slurring. HEAD: Atraumatic. Normocephalic. EYES: Pupils equal round and reactive. Extraocular motions intact. No scleral icterus. No injection or drainage. ENT: Nose without bleeding, purulent drainage. Throat without erythema, tonsillar hypertrophy or exudate. Airway patent. NECK: Trachea midline. Non tender CARDIOVASCULAR: Regular rate and rhythm without murmurs, gallops, or rubs. RESPIRATORY: Clear to auscultation. Breath sounds equal bilaterally. No wheezes, rales, or rhonchi. GASTROINTESTINAL: Abdomen soft, non-tender, nondistended. EXTREMITIES: No edema or joint tenderness. BACK: Nontender without deformity or crepitance. No flank tenderness. NEURO: AOx3. SKIN: No rash or erythema of visible areas Initial Vital Signs Initial Vital Signs: Vital Signs Temperature 97.7 F 08/25/22 19:00 Pulse Rate 85 08/25/22 19:00 Respiratory Rate 20 08/25/22 19:00 Blood Pressure 122/78 08/25/22 19:00 Pulse Oximetry 97 08/25/22 19:00 Oxygen Delivery Method Room Air 08/25/22 19:00 Course Vital Signs Vital signs: Vital Signs - 8 hr 08/25/22 19:00 Temperature 97.7 F Pulse Rate 85 Respiratory Rate 20 Blood Pressure 122/78 Pulse Oximetry 97 Oxygen Delivery Method Room Air MDM - Anxiety MDM Narrative Medical decision making narrative: [32] year old patient presents with anxiety in the absence of suicidal ideation, homicidal ideation, or inability to perform ADLs Multiple etiologies for patient's symptoms considered including, but not limited to: [Anxiety, suicidal ideation versus depression versus other] Prior Charts reviewed in our EMR Primary Historian: patient Patient with known anxiety and known triggers with appropriate outpatient plan is feeling anxious. He denies suicidal or homicidal ideation, we discussed social work consultation and possible hospitalization but he appropriately would prefer to wait until he sees the results of his doctor's appointment tomorrow, also states this is the 1st time he has been alone for any period of time since he has become clean from illicit drugs and his support returns tomorrow so he is hopeful. Findings and discharge diagnosis discussed with patient/family followed by verbalization of understanding Return precautions discussed with patient/family whom verbalize understanding of diagnosis and plan Discharge Plan Departure Patient Disposition: Home Clinical Impression: Acute anxiety Instructions: DI for Anxiety -- Adult Activity Restrictions/Additional Instructions: *You have been diagnosed with [anxiety] *What to do: *Please continue to take your regular medications as directed. [x ] New medication prescriptions sent to your pharmacy: [ [facility]] [ ] New medication written as a paper prescription [ ] No new medications given *Please follow up with your primary care provider tomorrow as planned. *Return to Emergency Department if you should have any new, worsening or concerning symptoms, such as [fever greater than 101 F, shaking chills, worsening pain, persistent vomiting or other bothersome symptoms] *If you feel that you are entering into mental health crisis you have multiple options 1. Return to the ER immediately 2. Call the Crisis Line at [phone] 3. Send an anonymous text by sending the word Ruben to [phone] 4. Navigate your web browser to [facility] [employer] [facility] to engage in anonymous chat with a mental health worker Prescriptions: New alprazolam 0.5 mg tablet 0.5 mg PO TID PRN (Reason: anxiety) Qty: 5 0RF No Action acetaminophen 325 MG tablet Qty: 0 ibuprofen 200 MG tablet Qty: 0 clonazepam 0.5 mg tablet 0.5 mg PO TID Qty: 90 1RF mirtazapine 15 mg tablet 45 mg PO ONCE Qty: 90 1RF sertraline [Zoloft] 25 mg tablet 25 mg PO DAILY Qty: 14 0RF alprazolam 1 mg tablet 0.5 mg PO TID PRN (Reason: anxiety) Qty: 5 0RF Stand Alone Forms: Patient Portal/API
--- NOTE | 2022-08-25 19:32 | PC.NURSE ---
Exam deferred to
== END 2022-08-25 19:25 | disposition home or self-care (01) ==
PROVIDERS: Emergency Provider Emergency Medicine; Family Provider Family Medicine
DX: F41.9 Anxiety disorder, unspecified (principal)
CPT/HCPCS: 99281